=== PATIENT | male | born 1945 | race Caucasian/White ===

== ENCOUNTER → 2016-09-05 | Outpatient (CLI) | payer MEDICARE ==
[~2016-09-05] MED LIST: ASPI-557 PO; LIDOCAINE 1% (10mg/ml) 30ml SDV ONE; METO25TA6 PO; MINO100C43 PO; NAPR-1119 PO; OXYC1TAB8 PO; P-EP-93 PO
== END ==
LOC: CATH 08:07
PROVIDERS: ATTEND Internal Medicine Cardiovascular Disease
DX: Z45.09 Encounter for adjustment and management of other cardiac device (principal)
CPT/HCPCS: 33284

== ENCOUNTER 2016-09-07 08:40 | Outpatient (CLI) | payer MEDICARE ==
[~2016-09-07] VITALS: Ht 182.2 cm; Wt 77.6 kg
[2016-09-07] VITALS (12 sets, daily range): BP systolic 117–169; BP diastolic 67–93; PULSE 47–65; RESP 0–18; TEMP 97.7–98; O2SAT 94–99; Ht 182.2 cm; Wt 77.6 kg
[~2016-09-07 08:40] MED LIST changes: -LIDOCAINE 1% (10mg/ml) 30ml SDV ONE; -MINO100C43 PO; -OXYC1TAB8 PO
--- NOTE | 2016-09-07 08:51 | NUR ---
ADMIT PT ADMITTED TO ROOM 122 AT THIS TIME VIA AMBULATORY STATUS. FAMILY PRESENT UPON ADMIT. PT REPOSITIONED SELF IN BED. WILL CONTINUE TO MONITOR.
[2016-09-07 09:51] LABS: BASOPHILS % (AUTO) 0.6 % (0-2); EOSINOPHILS # (AUTO) 0.1 T/MM3 (0-0.5); HCT - HEMATOCRIT 39.7 % (41-53); HGB - HEMOGLOBIN 13.5 GM/DL (13.5-17.5); IMMATURE GRANULOCYTE # (AUTO) 0.01 T/MM3 (0.00-0.03); IMMATURE GRANULOCYTE % (AUTO) 0.2 % (0.0-0.5); LYMPHOCYTES % (AUTO) 32.9 % (23-45); MEAN CORPUSCULAR HGB 31.7 UUG (26-34); MEAN CORPUSCULAR VOLUME 93.2 UM3 (80-100); MEAN PLATELET VOLUME 10.4 UM3 (9.4-12.4); MONOCYTES # (AUTO) 0.7 T/MM3 (0-0.8); MONOCYTES % (AUTO) 11.6 % (0-9.0); NEUTROPHILS #(AUTO)-ABSOLUTE 3.3 T/MM3 (1.8-7.7); NEUTROPHILS % (AUTO) 53.7 % (33-66); RED BLOOD COUNT 4.26 M/MM3 (4.50-5.90); WBC - WHITE BLOOD COUNT 6.2 T/MM3 (4.5-11.0)
[2016-09-07 10:01] LABS: ALBUMIN 3.6 G/DL (3.5-5.0); ALBUMIN/GLOBULIN RATIO 1.4 RATIO (1.1-2.2); ALKALINE PHOSPHATASE 78 U/L (38-126); ALT (SGPT) 27 U/L (21-72); ANION GAP 9 MEQ/L (5-15); AST (SGOT) 28 U/L (17-59); BUN/CREATININE RATIO 22 RATIO (6-26); CHLORIDE 106 MEQ/L (98-107); CO2 - CARBON DIOXIDE 28 MEQ/L (22-30); CREATININE 0.9 MG/DL (0.8-1.5); GLOMERULAR FILTRATION RATE 83; GLUCOSE 90 MG/DL (75-110); MAGNESIUM 2.1 MG/DL (1.6-2.3); POTASSIUM 3.9 MEQ/L (3.6-5); SODIUM 143 MEQ/L (134-144); TOTAL PROTEIN 6.2 G/DL (6.3-8.2)
[2016-09-07] MEDS ORDERED: MIDAZOLAM 5mg/5ml INJECTION ONE (11:09)
[2016-09-07] MEDS ORDERED: WATER FOR INJECTION 20 ML ONE (11:09)
[2016-09-07] MEDS ORDERED: FENTANYL 100mcg/2ml INJECTION ONE (11:09)
[2016-09-07] MEDS ORDERED: CEFAZOLIN 1 GRAM INJECTION ONE (11:09)
[2016-09-07] MEDS ORDERED: LIDOCAINE 1% (10mg/ml) 30ml SDV ONE (11:10)
--- NOTE | 2016-09-07 11:36 | NUR ---
TO FIRE EXTINGUISHER TECHNICIAN PATIENT TAKEN TO FIRE EXTINGUISHER TECHNICIAN AT THIS TIME VIA CART AND FIRE EXTINGUISHER TECHNICIAN STAFF. PATIENT STABLE AND ON ROOM AIR AT TIME OF TRANSFER. BP CUFF, CONSENT, AND CHART SENT WITH PATIENT.
--- NOTE | 2016-09-07 11:55 | NUR ---
ALE CM VISITED PT AND SPOUSE. CM EXPLAINED ROLE AND PROVIDED CONTACT INFORMATION. PT PLANS TO RETURN HOME AT TIME OF D/C FROM [facility]. PT DENIES NEEDS. PT IS AWARE TO CONTACT CM IF NEEDS ARISE.
[2016-09-07] MEDS ORDERED: BACITRACIN INJ. 50,000 UNITS VL ONE (12:23)
--- NOTE | 2016-09-07 13:20 | NUR ---
FROM LOOP PULLER PATIENT ARRIVED FROM LOOP PULLER AT THIS TIME. PATIENT ABLE TO TRANSFER SELF OVER TO SURGICAL UNIT BED FROM LOOP PULLER CART. A/OX3. ROOM AIR. VITAL SIGNS STABLE. DRESSING ON LEFT ANTERIOR CHEST CLEAN, DRY, INTACT. WILL CONTINUE TO MONITOR.
[2016-09-07] MEDS ORDERED: ACETAMINOPHEN/CODEINE 300mg/30mg TABLET PO PRN (17:00)
[2016-09-07] MEDS ORDERED: ACETAMINOPHEN 325 MG TABLET PO PRN (17:00)
[2016-09-07] MEDS ORDERED: BISACODYL 5 MG E.C. TABLET PO PRN (17:00)
[2016-09-07] MEDS ORDERED: MAG-AL + SIM LIQUID 30 ML UDC PO PRN (17:00)
[2016-09-07] MEDS ORDERED: OXYCODONE/APAP 5mg/325mg TABLET PO PRN (17:00)
[2016-09-07] MEDS ORDERED: LORATADINE/PSE 5/120 TABLET PO PRN (17:15)
[2016-09-07] MEDS: NAPROXEN 220 MG PO SCH (18:00)
--- NOTE | 2016-09-07 19:19 | NUR ---
END OF SHIFT REPORT PATIENT A/OX3. ROOM AIR. VITAL SIGNS STABLE. AFEBRILE. UP WITH STANDBY ASSIST. SLING RO LEFT ARM. DRESSING ON LEFT ANTERIOR CHEST CLEAN, DRY, INTACT. NO S/S OF EDEMA/BLEEDING/HEMATOMA. PATIENT HAS MET OUTPATIENT SURGICAL CRITERIA. WILL CONTINUE TO MONITOR.
[2016-09-07] MEDS: CEFAZOLIN 1 G in NORMAL SALINE 100 ML IV SCH (20:26)
[2016-09-08 00:08] VITALS: BP 146/94; PULSE 64; RESP 18; TEMP 98; O2SAT 96
[2016-09-08 03:05] VITALS: BP 136/68; PULSE 61; RESP 11; TEMP 98.5; O2SAT 97
[2016-09-08] MEDS: CEFAZOLIN 1 G in NORMAL SALINE 100 ML IV SCH (04:19)
--- NOTE | 2016-09-08 06:17 | NUR ---
SHIFT SUMMARY PT ALERT AND ORIENTED X3, VITAL SIGNS STABLE ON ROOM AIR. DENIES C/P,N/V AND SOA. PT HAS RATED PAIN A 2/10 MOSTLY WHEN TOUCHING THE OPERATIVE SITE, DENIES NEED FOR PAIN MEDICATION AT THIS TIME. PT UP STANDBY AMBULATES WELL TO AND FROM THE BATHROOM. WILL CONTINUE TO MONITOR.
[2016-09-08 06:27] LABS: BASOPHILS % (AUTO) 0.4 % (0-2); EOSINOPHILS % (AUTO) 0.5 % (0-4); HCT - HEMATOCRIT 42.9 % (41-53); HGB - HEMOGLOBIN 14.7 GM/DL (13.5-17.5); IMMATURE GRANULOCYTE # (AUTO) 0.02 T/MM3 (0.00-0.03); IMMATURE GRANULOCYTE % (AUTO) 0.3 % (0.0-0.5); LYMPHOCYTES # (AUTO) 1.7 T/MM3 (1-4.8); LYMPHOCYTES % (AUTO) 22.1 % (23-45); MEAN CORPUSCULAR HGB 31.4 UUG (26-34); MEAN CORPUSCULAR HGB CONC(MCHC 34.3 GM/DL (31-37); MEAN CORPUSCULAR VOLUME 91.7 UM3 (80-100); MEAN PLATELET VOLUME 10.9 UM3 (9.4-12.4); MONOCYTES # (AUTO) 0.8 T/MM3 (0-0.8); MONOCYTES % (AUTO) 10.5 % (0-9.0); NEUTROPHILS % (AUTO) 66.2 % (33-66); RED BLOOD COUNT 4.68 M/MM3 (4.50-5.90); WBC - WHITE BLOOD COUNT 7.5 T/MM3 (4.5-11.0)
[2016-09-08 06:31] LABS: ANION GAP 8 MEQ/L (5-15); BUN/CREATININE RATIO 24 RATIO (6-26); CALCIUM 9.1 MG/DL (8.4-10.2); CHLORIDE 107 MEQ/L (98-107); CO2 - CARBON DIOXIDE 27 MEQ/L (22-30); CREATININE 0.8 MG/DL (0.8-1.5); GLOMERULAR FILTRATION RATE 95; GLUCOSE 94 MG/DL (75-110); POTASSIUM 4.9 MEQ/L (3.6-5); SODIUM 142 MEQ/L (134-144)
[2016-09-08 08:00] VITALS: BP 129/84; PULSE 72; RESP 15; TEMP 98.4; O2SAT 98
[2016-09-08] MEDS ORDERED: METOPROLOL TARTRATE 25mg TAB - PT OWN PO SCH (08:00)
[2016-09-08 08:01] VITALS: PULSE 72; RESP 15
--- NOTE | 2016-09-08 08:25 | DI ---
Indication: ITS.REASON: post ppm PROCEDURE: CHEST 1 VIEW: Encounter: Initial Comparison: May 06, 2014 Findings: New left dual lead cardiac pacemaker with right atrial and right ventricular leads. No evidence of lead fracture or discontinuity. Stable calcified granuloma in the right midlung. Lungs are otherwise clear. No visible pneumothorax. Overlying monitoring leads. No pleural effusion. Heart size is decreased from the comparison and is now normal. Mediastinal contours and pulmonary vascularity are normal. Impression: New left pacemaker without evidence of immediate complication. .
[2016-09-08] MEDS: NAPROXEN 220 MG PO SCH ×2 (08:30→17:42)
--- NOTE | 2016-09-08 08:37 | DI ---
INDICATION: ITS.REASON: post ppm PROCEDURE: CHEST 2-VIEWS UPRIGHT (PA \T\ LAT) Encounter: Initial COMPARISON: September 07, 2016 FINDINGS: The lungs are clear without evidence of focal abnormal airspace opacity. There is no pleural effusion or pneumothorax. Left dual lead pacemaker is stable in position. The heart size, mediastinal contours and pulmonary vascularity are within normal limits. There is no significant skeletal abnormality. IMPRESSION: Stable appearance of the left pacemaker. .
[2016-09-08] MEDS ORDERED: ASPIRIN 81 MG PO SCH (09:00)
--- NOTE | 2016-09-08 10:21 | NUR ---
CM CM IN TO VISIT WITH PT. HE IS ALERT AND ORIENTED. HE PLANS TO DC HOME. HE DENIES DC NEEDS. HE FEELS THAT HE WILL BE ABLE TO CARE FOR SELF WITH ASSISTANCE FROM HIS SPOUSE. LACE SCORE IS 1. NO ADDITIONAL INTERVENTION NEEDED. HE IS GIVEN UPDATED CM CONTACT INFORMATION. Addendum: 09/08/16 at 1022 by PATRICK WONG RN Amended: Links added.
[2016-09-08 13:08] VITALS: BP 114/76; PULSE 62; RESP 16; TEMP 97.3; O2SAT 97
[2016-09-08 16:29] VITALS: BP 124/75; PULSE 83; RESP 16; TEMP 98.4; O2SAT 96
[2016-09-08] MEDS ORDERED: MINOCYCLINE 100 MG CAPSULE PO SCH (18:00)
[2016-09-08] MEDS ORDERED: MINO100C43 PO (18:10)
[2016-09-08] MEDS ORDERED: METO25TA6 PO (18:10)
[2016-09-08] MEDS ORDERED: OXYC1TAB8 PO (18:10)
--- NOTE | 2016-09-08 18:21 | PNPDOC ---
Subjective Date DATE: 09/08/16 TIME: 18:11 Subjective feeling very well . denies cp or dyspnea. no incisonal pain. Objective Vital Signs Vital signs Vital Signs 09/08/16 09/08/16 09/08/16 09/08/16 08:00 08:01 13:08 16:29 Temp 98.4 97.3 98.4 Pulse 72 72 62 83 Resp 15 15 16 16 B/P 129/84 114/76 124/75 Pulse Ox 98 97 96 O2 Delivery Room Air Room Air Room Air Telemetry Rhythm: Sinus Rhythm Height (Feet): 5 Height (Inches): 11.75 Weight (Kilograms): 77.600 General Alert, Orientated x 3, No Acute Distress Eyes (Brief) EOMI, PERRL, NOT FOUND: trauma ENMT (Brief) mucosa moist Neck (Brief) NOT FOUND: JVD Respiratory (Brief) clear all barr, equal bilaterally Cardiovascular (Brief) regular rate, regular rhythm Capillary Refill: <2 sec Abdomen (Brief) BS normo active x4, soft, NOT FOUND: distended, tender Extremities (Brief) Extremity : Extremity Finding: clubbing, cyanosis, NOT FOUND: edema Integumentary (Brief) pink, warm Neurologic (Brief) FOUND: cranial 2-12 intact, NOT FOUND: facial droop, ptosis Psychiatric (Brief) alert, attentive, normal affect, oriented Laboratory Laboratory Laboratory Tests 09/08/16 06:02 Laboratory Tests 09/08/16 06:02 Microbiology Microbiology cxr good ppm no ptx. Assessment & Plan Plan/Intensity of Service s/p PPM doing well d/c home AFSANEH NASCIMENTO MD Sep 08, 2016 18:14
--- NOTE | 2016-09-08 18:35 | NUR ---
DISCHARGE PT DISCHARGED TO HOME AT THIS TIME IN THE COMPANY OF HIS . PT TRANSPORTED BY WHEELCHAIR TO THE ER ENTRANCE BY STAFF. DISCHARGE INSTRUCTIONS INCLUDING DIET, ACTIVITY RESTRICTIONS, MEDICATIONS, FOLLOW UP APPOINTMENT, REPORTABLE S/S AND [facility] PACEMAKER INSTRUCTIONS GIVEN AND REVIEWED WITH PATIENT. SCRIPT FOR PERCOCET GIVEN TO PT AND COPY OF SCRIPT PLACED IN CHART. PT VERBALIZED UNDERSTANDING OF THESE INSTRUCTIONS AND HAD NO FURTHER QUESTION. IVL DISCONTINUED. ARMBAND REMOVED. PERSONAL BELONGINGS AND HOME MEDICATIONS RETURNED.
== END 2016-09-08 18:35 | disposition home or self-care (01) ==
LOC: CATH 08:40 → SRG 08:40 → CATH 09-08 18:35
PROVIDERS: ATTEND Internal Medicine Cardiovascular Disease
DX: I49.5 Sick sinus syndrome (principal); R55 Syncope and collapse; Z79.82 Long term (current) use of aspirin; Z79.1 Long term (current) use of non-steroidal anti-inflammatories (NSAID); Z79.899 Other long term (current) drug therapy
CPT/HCPCS: 33208; 36415; 71010; 71020; 80048; 80053; 83735; 85025; 93005; A9270; C1785; C1898; J0690; J2250; J3010; J7050; L3650; Q9967